=== PATIENT | male | born 1955 | race Caucasian/White ===

== ENCOUNTER 2020-11-25 10:18 | Emergency (ER) | payer BC ==
[~2020-11-25] VITALS: Ht 177.8 cm; Wt 111.1 kg
[~2020-11-25 10:18] MED LIST: ASPIR 8181 MG PO; GLYBURIDE2.5 MG PO; LIPITOR TAB 2020 MG PO; METOPROLOL TART25 MG PO; NEURONTIN 300300 MG PO; NORVASC 5 MG TAB5 MG PO; ONE DAILY WITH1 EACH PO; VITAMIN B-122500 MCG SL
== END 2020-11-25 13:50 | disposition home or self-care (01) ==
LOC: ER1 10:18
DX: U07.1 COVID-19 (principal)
CPT/HCPCS: 99283